=== PATIENT | male | born 1975 | race Caucasian/White ===

== ENCOUNTER 2017-05-20 20:43 | Emergency (ER) | payer OTHER ==
[~2017-05-20] VITALS: Ht 185.4 cm; Wt 90.7 kg
[2017-05-20 21:09] VITALS: BP 164/72
[2017-05-20] MEDS ORDERED: TETRACAINE 0.5% OPHTH SOLUTION 4ML BOTTLE. OS ONE (21:30)
[2017-05-20] MEDS ORDERED: FLUORESCEIN OPHTH TEST STRIP. OS ONE (21:30)
[2017-05-20] MEDS ORDERED: EYE-STREAM OPHTH SOLUTION 120 ML BOTTLE. OS ONE (21:30)
[2017-05-20] MEDS ORDERED: OFLO5DRO OS (22:05)
--- NOTE | 2017-05-20 22:06 | PHYS DOC ---
Past Medical History Past Medical History: No Pertinent History Past Surgical History: Cholecystectomy Alcohol Use: None Drug Use: None Adult General Chief Complaint Chief Complaint: FOREIGN BODY/EYES HPI HPI Patient is a 41 year old male since emergency department stating he was driving him tonight when he felt as though something flew into his left eye. He states that he has sharp pain and discomfort. He denies any change in his vision. He denies any use of contact lenses. He states his last tetanus immunization was approximately 2 years ago. Review of Systems Review of Systems Constitutional: Denies fever or chills [] Eyes: Denies change in visual acuity, C/o redness, and left eye pain [] HENT: Denies nasal congestion or sore throat [] Respiratory: Denies cough or shortness of breath [] Cardiovascular: No additional information not addressed in HPI [] GI: Denies abdominal pain, nausea, vomiting, bloody stools or diarrhea [] : Denies dysuria or hematuria [] Musculoskeletal: Denies back pain or joint pain [] Integument: Denies rash or skin lesions [] Neurologic: Denies headache, focal weakness or sensory changes [] Endocrine: Denies polyuria or polydipsia [] Current Medications Current Medications Current Medications Medications (Trade) Dose Ordered Sig/Pavan Start Time Stop Time Status Last Admin Dose Admin Balanced Salt Solution (Eye-Stream) 120 ml 1X ONCE 05/20/17 21:30 05/20/17 21:31 DC 05/20/17 21:36 120 ML Fluorescein Sodium (Ful-Mary Carmen) 1 strip 1X ONCE 05/20/17 21:30 05/20/17 21:31 DC 05/20/17 21:36 1 STRIP Tetracaine HCl (Tetracaine) 1 drop 1X ONCE 05/20/17 21:30 05/20/17 21:31 DC 05/20/17 21:36 1 DROP Allergies Allergies Allergies Coded Allergies Type Severity Reaction Last Updated Verified No Known Drug Allergies 05/20/17 No Physical Exam Physical Exam Constitutional: Well developed, well nourished, no acute distress, non-toxic appearance. [] HENT: Normocephalic, atraumatic, bilateral external ears normal, oropharynx moist, no oral exudates, nose normal. [] Eyes: PERRLA, EOMI, conjunctiva red, no discharge. [] Neck: Normal range of motion, no tenderness, supple, no stridor. [] Skin: Warm, dry, no erythema, no rash. [] Extremities: No tenderness, no cyanosis, no clubbing, ROM intact, no edema. [] Neurologic: Alert and oriented X 3, normal motor function, normal sensory function, no focal deficits noted. [] Psychologic: Affect normal, judgement normal, mood normal. [] Current Patient Data Vital Signs Vital Signs Date Time Temp Pulse Resp B/P (MAP) Pulse Ox O2 Delivery O2 Flow Rate FiO2 05/20/17 21:09 97.7 97 20 164/72 (102) 96 Room Air 97.7 EKG EKG [] Radiology/Procedures Radiology/Procedures [] Course & Med Decision Making Course & Med Decision Making Pertinent Labs and Imaging studies reviewed. (See chart for details) Tetracaine was placed into the left eye with upper eyelid inverted with a foreign body noted and removed with a Q-tip. Worse and was used with uptake noted at the 1:00 area with a pinpoint dot. Patient I was irrigated with normal saline. Patient will be discharged home with ofloxacin eyedrops. Patient was instructed to follow-up with an commercial collections specialist in the next 24 hours. Signs and symptoms to return back to emergency department as been provided. Also recommended Tylenol or ibuprofen for pain and discomfort. [] Dragon Disclaimer Dragon Disclaimer This electronic medical record was generated, in whole or in part, using a voice recognition dictation system. Departure Departure Impression: Primary Impression: Foreign body of left eye Additional Impression: Corneal abrasion, left Disposition: 01 HOME, SELF-CARE Condition: STABLE Referrals: NO PCP (PCP) Jasmeet ROJAS MD Patient Instructions: Eye - Corneal Abrasion, [id number], Eye - Foreign Body , [id number] Additional Instructions: Tylenol or ibuprofen for pain and discomfort. Medication as prescribed. Follow-up with ophthalmology in the next 24 hours. Return to emergency prior signs symptoms of become worse. Scripts Ofloxacin (OCUFLOX) 5 Ml Drops 1-2 DROP OS BID, #[address] in the left eye for the next 7 days Prov: CAITLIN LOPEZ APRN 05/20/17 Problem Qualifiers CAITLIN LOPEZ APRN May 20, 2017 22:06
== END 2017-05-20 22:19 | disposition home or self-care (01) ==
LOC: ER 20:43
DX: T15.02XA Foreign body in cornea, left eye, initial encounter (principal); Z90.49 Acquired absence of other specified parts of digestive tract; X58.XXXA Exposure to other specified factors, initial encounter; Y93.89 Activity, other specified; Y92.89 Other specified places as the place of occurrence of the external cause; Y99.8 Other external cause status
CPT/HCPCS: 65205; 99284-25

== ENCOUNTER 2021-12-02 11:33 | Emergency (ER) | payer OTHER ==
[~2021-12-02] VITALS: Ht 188 cm; Wt 93.1 kg
[~2021-12-02 11:33] MED LIST: OFLO5DRO OS
[2021-12-02 11:49] VITALS: BP 170/97
[2021-12-02] MEDS ORDERED: HYDR-2761 PO (12:15)
[2021-12-02] MEDS ORDERED: AMOX875T PO (12:15)
--- NOTE | 2021-12-02 12:17 | PHYS DOC ---
Past Medical History Past Medical History: No Pertinent History Additional Past Medical Histor: RIGHT EAR DEAFNESS (KOBY BEAVERS [employer] BOOM CAT OPERATOR) Past Surgical History: Cholecystectomy, Other Additional Past Surgical Histo: KIDNEY STONES (KOBY BEAVERS [employer] BOOM CAT OPERATOR) Smoking Status: Current Every Day Smoker Alcohol Use: None Drug Use: None (RUTHANNKOBY Weinberg BOOM CAT OPERATOR) General Adult EDM: Chief Complaint: EARACHE/EAR PAIN HPI: HPI: Patient is a 46 year old male who presents to the ED today complaining of 10 out of 10 left ear pain described as sharp and constant, symptoms began at 4 AM this morning. He states at 10 AM this morning he used a Q-tip into the left ear, he states he started bleeding right away and the pain got worse. He also states he is deaf to the right ear. Denies any fever. He is also complaining of nasal congestion for 2 days. (RUTHANNKOBY Weinberg BOOM CAT OPERATOR) Review of Systems: Review of Systems: Constitutional: Denies fever or chills. [] HENT: Reports left ear pain with bleeding, reports nasal congestion denies nasal congestion Respiratory: Denies cough or shortness of breath. [] Cardiovascular: Denies chest pain or edema. [] GI: Denies abdominal pain, nausea, vomiting, bloody stools or diarrhea. [] : Denies dysuria. [] Musculoskeletal: Denies back pain or joint pain. [] Integument: Denies rash. [] Neurologic: Denies headache, focal weakness or sensory changes. [] Psychiatric: Denies depression or anxiety. [] (KOBY BEAVERS BOOM CAT OPERATOR) Heart Score: C/O Chest Pain: N/A Risk Factors: Risk Factors: DM, Current or recent (<one month) smoker, HTN, HLP, family history of CAD, obesity. Risk Scores: Score 0 - 3: 2.5% MACE over next 6 weeks - Discharge Home Score 4 - 6: 20.3% MACE over next 6 weeks - Admit for Clinical Observation Score 7 - 10: 72.7% MACE over next 6 weeks - Early Invasive Strategies (KOBY BEAVERS BOOM CAT OPERATOR) Allergies: Allergies: Allergies Coded Allergies Type Severity Reaction Last Updated Verified No Known Drug Allergies 05/20/17 No (KOBY BEAVERS BOOM CAT OPERATOR) Physical Exam: PE: Constitutional: Well developed, well nourished, no acute distress, non-toxic appearance. [] HENT: Normocephalic, atraumatic, bilateral external ears normal, oropharynx moist, no oral exudates, nose normal. Patient is deaf to the right ear. Left TM is perforated and erythematous Cardiovascular:Heart rate regular rhythm, no murmur [] Lungs & Thorax: Bilateral breath sounds clear to auscultation [] Skin: Warm, dry, no erythema, no rash. [] Back: No tenderness, no CVA tenderness. [] Extremities: No tenderness, no cyanosis, no clubbing, ROM intact, no edema. [] Neurologic: Alert and oriented X 3, normal motor function, normal sensory func tion, no focal deficits noted. [] Psychologic: Affect normal, judgement normal, mood normal. [] (KOBY BEAVERS APRN) Current Patient Data: Vital Signs: Vital Signs Date Time Temp Pulse Resp B/P (MAP) Pulse Ox O2 Delivery O2 Flow Rate FiO2 12/02/21 11:49 98.0 104 20 170/97 (121) 98 Room Air 98.0 (KOBY BEAVERS BOOM CAT OPERATOR) EKG: EKG: [] (KOBY BEAVERS BOOM CAT OPERATOR) Radiology/Procedures: Radiology/Procedures: [] (KOBY BEAVERS APRN) Course & Med Decision Making: Course & Med Decision Making Pertinent Labs and Imaging studies reviewed. (See chart for details) This is a 46-year-old male patient with left ear pain that began at 4 AM, he unfortunately used a Q-tip at 10 AM in the left ear and perforated the eardrum, he also has otitis media on the unperforated ear drum parts. Discharged with amoxicillin and hydrocodone for pain. Emphasized to this patient the importance of following up with ENT considering he is already deaf in the right ear. Provided ENT contact information Blood pressure was 170/97 with a heart rate of 104, patient has history of hypertension, was on blood pressure medicines, he states his numbers became normal and he took himself from blood pressure medications. He has no chest pain or shortness of breath, no headache. Instructed patient to contact his PCP on Saturday and notify the primary care doctor he stopped taking the medicine. Informed him if he has the medicine at home he can start taking it but he was n ot sure. He has no recollection of what medication he supposed to be on. (KOBY BEAVERS APRN) Course & Med Decision Making I have reviewed the PA/CHAR FILTER OPERATOR HELPER's note and plan of care. I was available for consultation as needed during the patient's visit in the emergency department. (MARCO KHALIL MD) Dragon Disclaimer: Dragon Disclaimer: This electronic medical record was generated, in whole or in part, using a voice recognition dictation system. (RUTHANNKOBY Weinberg APRN) Departure Departure Impression: Primary Impression: Otitis media, left Qualified Codes: H66.92 - Otitis media, unspecified, left ear Additional Impressions: Perforated eardrum Qualified Codes: H72.92 - Unspecified perforation of tympanic membrane, left ear URI (upper respiratory infection) Qualified Codes: J06.9 - Acute upper respiratory infection, unspecified Otalgia of left ear Disposition: 01 HOME / SELF CARE / HOMELESS Condition: STABLE Referrals: NO PCP (PCP) SHYLA PIÑA MD follow up in one week Patient Instructions: Eardrum Perforation, Otitis Media, Adult Additional Instructions: You have a perforated eardrum with infection. Please take the prescribed antibiotics until completed. Follow-up with the provided ENT next week. Your blood pressure is also high. Contact your doctor on Saturday and let him or her know your blood pressure is running high and they need to put you back on blood pressure medicine Scripts Hydrocodone Bit/Acetaminophen (HYDROCODONE-APAP 5-325 ) 1 Tab Tablet 1 TAB PO PRN Q6HRS PRN for PAIN, #14 TAB 0 Refills Prov: KOBY BEAVERS APRN 12/02/21 Amoxicillin (AMOXICILLIN) 875 Mg Tablet 1 TAB PO BID, #20 TAB Prov: KOBY BEAVERS BOOM CAT OPERATOR 12/02/21 KOBY BEAVERS APRN Dec 02, 2021 12:17 MARCO KHALIL MD Dec 03, 2021 07:06
[2021-12-02] MEDS ORDERED: HYDROcodone/APAP 5/325MG 1 TAB TABLET PO ONE (12:30)
== END 2021-12-02 12:24 | disposition home or self-care (01) ==
LOC: ER 11:33
DX: H66.92 Otitis media, unspecified, left ear (principal); H72.92 Unspecified perforation of tympanic membrane, left ear; J06.9 Acute upper respiratory infection, unspecified; I10 Essential (primary) hypertension; F17.200 Nicotine dependence, unspecified, uncomplicated; Z90.49 Acquired absence of other specified parts of digestive tract
CPT/HCPCS: 99283